=== PATIENT | female | born 1950 | race Caucasian/White ===

== ENCOUNTER 2021-05-18 22:32 | Emergency (ER) | payer MEDICARE, MEDICAID ==
[~2021-05-18] VITALS: Ht 165.1 cm; Wt 68.0 kg
[2021-05-18] MEDS ORDERED: CITA20TA19 PO (22:51)
[2021-05-18] MEDS ORDERED: ASCO500C18 PO (22:51)
[2021-05-18] MEDS ORDERED: MULT-619 PO (22:51)
[2021-05-18] MEDS ORDERED: QUET50TA PO (22:51)
[2021-05-18] MEDS ORDERED: MELA5TAB PO (22:51)
[2021-05-18] MEDS ORDERED: LORA-258 PO (22:51)
--- NOTE | 2021-05-18 23:02 | NUR ---
Phleb in room to draw blood
[2021-05-18 23:11] LABS: HEMATOCRIT 38.6 % (31.2-41.9); MEAN CORPUSCULAR HEMOGLOBIN 32.1 uug (24.7-32.8); MEAN CORPUSCULAR VOLUME 93.6 fL (75.5-95.3); PLATELET COUNT (AUTO) 99 K/uL (179-408)
--- NOTE | 2021-05-18 23:20 | NUR ---
Out for imaging in stable condition
[2021-05-18 23:30] LABS: ALANINE AMINOTRANSFERASE 23 U/L (14-59); ALKALINE PHOSPHATASE 80 U/L (50-136); ASPARTATE AMINOTRANSFERASE 19 U/L (15-37); BILIRUBIN,DIRECT 0.1 mg/dL (0.0-0.2); BILIRUBIN,TOTAL 0.4 mg/dL (0.2-1.0); CARBON DIOXIDE 31 mmol/L (21-32); CHLORIDE 104 mmol/L (98-107); CREATININE 0.9 mg/dL (0.6-1.3); ETHANOL < 3 MG/DL (0-0); GLUCOSE 91 mg/dL (74-106); POTASSIUM 4.3 mmol/L (3.5-5.1); TOTAL PROTEIN, SERUM 6.5 g/dL (6.4-8.2); UREA NITROGEN, BLOOD 25 mg/dL (7-18)
--- NOTE | 2021-05-18 23:31 | NUR ---
Patient back in room
[2021-05-18 23:38] LABS: THYROID STIMULATING HORMONE 5.331 mIU/mL (0.358-3.740)
[2021-05-18 23:45] LABS: ACETAMINOPHEN < 2.0 ug/mL (10-30)
--- NOTE | 2021-05-19 00:57 | NUR ---
PET team - Leida - in room to assess patient
--- NOTE | 2021-05-19 02:00 | NUR ---
Pt asleep in bed. NAD noted. VSS.
--- NOTE | 2021-05-19 03:35 | NUR ---
Patient asleep in bed. DAGOBERTO. MAYRA.
--- NOTE | 2021-05-19 05:39 | NUR ---
Patient asleep in bed. NAD noted. VSS. Denies SI/HI/AH/VH.
--- NOTE | 2021-05-19 07:30 | NUR ---
Patient is awake and alert with no new complaints
--- NOTE | 2021-05-19 08:02 | NUR ---
Patient is sitting up eating breakfast
--- NOTE | 2021-05-19 08:26 | NUR ---
Spoke to Amber , social human services assistants , to have patient either go back to [facility] facility or find new placement
--- NOTE | 2021-05-19 09:15 | NUR ---
Per NICOLE Clark, patient to go back to her facility "[facility]". I called to dustin and daylin report to Kathryn. [facility] will transport her back, ETA 1015 am today
--- NOTE | 2021-05-19 09:21 | NUR ---
[facility] cannot transport patient
--- NOTE | 2021-05-19 09:35 | NUR ---
NICOLE MAZA TO ARRANGE TRANSPORT BECAUSE [facility] STATES THEY CANNOT TAKE HER AND OTHER AMBULANCE PLACED ON HOLD TOO LONG
--- NOTE | 2021-05-19 10:04 | NUR ---
Clinical Calender Roll Operator Note NICOLE spoke with Irlanda [phone] to coordinate patient pickup and return to SNF at [facility] at [address] [place] [address] . Irlanda ETA 1PM. NICOLE informed RN, Lorenza of update.
--- NOTE | 2021-05-19 11:38 | NUR ---
AMBULANCE TO ARRIVE AT 1300 TODAY TO TRANSPORT BACK TOP FACILITY. PATIENT IS AWAKE AND ALERT WITH NO COMPLAINTS
--- NOTE | 2021-05-19 13:00 | NUR ---
PATIENT IS SITTING UP EATING LUNCH
--- NOTE | 2021-05-19 13:09 | NUR ---
[facility] HERE TO TAKE PATIENT BACK TO HER FACILITY
== END 2021-05-19 13:19 ==
LOC: ER 22:35
DX: F32.9 Major depressive disorder, single episode, unspecified (principal); R45.851 Suicidal ideations; R00.1 Bradycardia, unspecified; G40.909 Epilepsy, unspecified, not intractable, without status epilepticus; H54.7 Unspecified visual loss; F41.9 Anxiety disorder, unspecified; F03.90 Unspecified dementia, unspecified severity, without behavioral disturbance, psychotic disturbance, mood disturbance, and anxiety; Z88.0 Allergy status to penicillin
CPT/HCPCS: 36415; 70030-TC; 70450; 71045; 84443; 85025; 93005; A4663; G0480